=== PATIENT | female | born 1960 | race Two or more races ===

== ENCOUNTER 2017-06-13 18:02 | Emergency (ER) | payer BC ==
[2017-06-13] MEDS ORDERED: Albuterol/Ipratropium 3.0-0.5 MG/3 ML Neb Soln NEB ONE (18:30)
--- NOTE | 2017-06-13 18:37 | EDM.PDOC ---
ED HPI GENERAL MEDICAL PROBLEM - General Chief Complaint: Respiratory Problem Stated Complaint: COUGHING UP BLOOD Time Seen by Provider: 06/13/17 18:35 Source of Information: Reports: Patient History Limitations: Reports: No Limitations - History of Present Illness INITIAL COMMENTS - FREE TEXT/NARRATIVE: HISTORY AND PHYSICAL: []56-year-old female presenting with a cough she states she got it from her History of Present Illness: []She's been sick for 2 weeks was started on amoxicillin last week by [facility]. She has not improved Review of Systems: As per history of present illness and below otherwise all systems reviewed and negative. Past medical history: As per history of present illness and as reviewed below otherwise noncontributory. Surgical history: As per history of present illness and as reviewed below otherwise noncontributory. Social history: No reported history of drug or alcohol abuse. Family history: As per history of present illness and as reviewed below otherwise noncontributory. Physical exam: Pleasant 56-year-old who has quite a hoarse voice, answering questions appropriately has to cough after 4-5 words. Productive cough of green yellow phlegm HEENT: Atraumatic, normocehpalic, pupils reactive, negative for conjunctival pallor or scleral icterus, mucous membranes moist, throat clear, neck supple, nontender, trachea midline. Tonsils 2+ cryptic erythematous anterior cervical adenopathy palpable Lungs: Crackles on auscultation, breath sounds equal bilaterally, chest non tender. Heart: S1S2, regular, negative for clicks, rubs, or JVD. Abdomen: Soft, nondistended, nontender. Negative for masses or hepatossplenmegaly. Negative for costovertebral tenderness. Pelvis: Stable nontender. Genitourinary: Deferred. Rectal: Deferred Extremities: Atraumatic, negative for cords or calf pain. Neurovascular unremarkable. Neuro: Awake, alert, oriented. Cranial nerves II through XII unremarkable. Cerebellum unremarkable. Motor and sensory unremarkable throughout. Exam nonfocal. Have discussed with the patient and her that her mono test is returned negative She does have acute tonsillitis Diagnostics: [Chest x-ray [place] spot] Therapeutics: [] Impression: [Tonsillitis] Plan: [Discharged to home Augmentin suspension Tessalon Frida 4 cough] Definitive disposition and diagnosis as appropriate pending reevaluation and review of above. Onset: Gradual Duration: Week(s): (2) Location: Reports: Neck, Chest Quality: Reports: Same as Previous Episode Severity: Moderate Improves with: Reports: None Worsens with: Reports: None pain when coughing Pain Score (Numeric/FACES): 6 - Related Data Allergies Allergy/AdvReac Type Severity Reaction Status Date / Time chocolate flavor Allergy Rash Verified 06/13/17 18:22 niacin Allergy Cannot Verified 06/13/17 18:22 Remember pioglitazone [From Actos] Allergy Rash Verified 06/13/17 18:22 Home Meds: Home Meds Amoxicillin/Clavulanate K [Augmentin 600-42.9 MG/5 ML Susp] 600 mg PO BID #1 bottle 06/13/17 [Rx] Benzonatate [Tessalon Perle] 100 mg PO QID PRN #28 capsule 06/13/17 [Rx] methylPREDNISolone [Medrol] 4 mg PO ASDIRECTED #1 dosepk 06/13/17 [Rx] Past Medical History 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 ED EXAM, GENERAL - Physical Exam Exam: See Below Course - Vital Signs Last Recorded V/S: Last Vital Signs Temp 35.8 C 06/13/17 18:23 Pulse 99 06/13/17 18:23 Resp 20 06/13/17 18:23 BP 173/87 H 06/13/17 18:23 Pulse Ox 96 06/13/17 18:23 - Orders/Labs/Meds Orders: Active Orders 24 hr Category Date Time Status RT Aerosol Therapy [RC] ASDIRECTED Care 06/13/17 18:31 Active Chest 2V [CR] Stat Exams 06/13/17 18:31 Taken Labs: Laboratory Tests 06/13/17 Range/Units 18:43 Monoscreen NEGATIVE (NEG) Meds: Medications Discontinued Medications Generic Name Dose Route Start Last Admin Trade Name Freq PRN Reason Stop Dose Admin Albuterol/Ipratropium 3 ml 06/13/17 18:30 06/13/17 18:37 Duoneb 3.0-0.5 Mg/3 Ml NEB 06/13/17 18:31 3 ml ONETIME ONE Administration Prednisolone 30 mg 06/13/17 19:12 Orapred 15 Mg/5ml Soln PO 06/13/17 19:13 ONETIME ONE Departure - Departure Time of Disposition: 19:22 Disposition: Home, Self-Care 01 Condition: Good Clinical Impression: Tonsillitis - Discharge Information Prescriptions: Amoxicillin/Clavulanate K [Augmentin 600-42.9 MG/5 ML Susp] 600 mg PO BID #1 bottle Benzonatate [Tessalon Perle] 100 mg PO QID PRN #28 capsule PRN Reason: Cough methylPREDNISolone [Medrol] 4 mg PO ASDIRECTED #1 dosepk Instructions: Upper Respiratory Infection, Adult, [id number], Tonsillitis, [id number] Referrals: PCP,None [Primary Care Provider] - Forms: ED Department Discharge Additional Instructions: The following information is given to patients seen in the emergency department who are being discharged to home. This information is to outline your options for follow-up care. We provide all patients seen in our emergency department with a follow-up referral. The need for follow-up, as well as the timing and circumstances, are variable depending upon the specifics of your emergency department visit. If you don't have a primary care physician on staff, we will provide you with a referral. We always advise you to contact your personal physician following an emergency department visit to inform them of the circumstance of the visit and for follow-up with them and/or the need for any referrals to a consulting specialist. The emergency department will also refer you to a specialist when appropriate. This referral assures that you have the opportunity for followup care with a specialist. All of these measure are taken in an effort to provide you with optimal care, which includes your followup. Under all circumstances we always encourage you to contact your private physician who remains a resource for coordinating your care. When calling for followup care, please make the office aware that this follow-up is from your recent emergency room visit. If for any reason you are refused follow-up, please contact the [facility] emergency department at and asked to speak to the emergency department charge nurse. Prescription since it been sent to [facility] Augmentin suspension 4 year tonsillitis Elieser Gal[place] for a cough Medrol dose pack for your upper airway edema - My Orders Last 24 Hours: My Active Orders 06/13/17 18:31 RT Aerosol Therapy [RC] ASDIRECTED Chest 2V [CR] Stat - Assessment/Plan Last 24 Hours: My Active Orders 06/13/17 18:31 RT Aerosol Therapy [RC] ASDIRECTED Chest 2V [CR] Stat
[2017-06-13] MEDS ORDERED: prednisoLONE Soln 15 MG/5 ML UD Cup PO ONE (19:12)
--- NOTE | 2017-06-15 17:52 | CR ---
EXAM DATE: 06/13/17 PATIENT'S AGE: 56 Patient: CHYNA RAMIREZ Facility: [place], [place] Site . Site : [id number] Study: XRay Chest [id number]/17/2018 7:14:14 PM Ordering Physician: Doctor Soriano Final Report: INDICATION: Pain. Shortness of breath. TECHNIQUE: PA and lateral views of the chest. COMPARISON: None. FINDINGS: Heart size is within normal limits. Normal pulmonary vasculature. There is a nonspecific opacity overlying the right hilum on the frontal view, which appears to be related airspace disease anteriorly in the right middle lobe on the lateral view. Also on the frontal view is a bandlike area opacity radiating from the right hilum, which could be related to subsegmental atelectasis. The left lung is grossly clear. No appreciable pleural fluid or pneumothorax. IMPRESSION: Right middle lobe airspace opacities. Recommend correlation with clinical symptoms (i.e. fever or elevated WBC) to exclude an infectious or inflammatory process. Recommend short-term followup to exclude a postobstructive process. Dictated by Yo Rasheed MD @ 06/13/2017 7:33:11 PM Dictated by: Yo Rasheed MD @ 06/13/2017 19:33:28 (Electronic Signature) Report Signed by Proxy. RILEY
== END 2017-06-13 19:50 | disposition home or self-care (01) ==
LOC: MW.ED 18:02
DX: J03.90 Acute tonsillitis, unspecified (principal); E11.9 Type 2 diabetes mellitus without complications; Z88.8 Allergy status to other drugs, medicaments and biological substances; Z91.018 Allergy to other foods
CPT/HCPCS: 36415; 71046; 86308; 94640; 99284; A9270; 99283

== ENCOUNTER 2017-10-27 07:00 | Emergency (ER) | payer BC ==
--- NOTE | 2017-10-27 07:27 | EDM.PDOC ---
ED HPI GENERAL MEDICAL PROBLEM - General Chief Complaint: Eye Problems Stated Complaint: SWOLLEN RIGHT EYE Time Seen by Provider: 10/27/17 07:19 Source of Information: Reports: Patient - History of Present Illness INITIAL COMMENTS - FREE TEXT/NARRATIVE: HISTORY AND PHYSICAL: History of present illness: [Patient presents with a conjunctivitis on the right, which be again several days ago, no pain with ocular movement, no visual change No fever nausea vomiting chills sweats she does have associated sinus tenderness on the right as well Review of systems: As per history of present illness and below otherwise all systems reviewed and negative. Past medical history: As per history of present illness and as reviewed below otherwise noncontributory. Surgical history: As per history of present illness and as reviewed below otherwise noncontributory. Social history: No reported history of drug or alcohol abuse. Family history: As per history of present illness and as reviewed below otherwise noncontributory. Physical exam: HEENT: Atraumatic, normocephalic, pupils reactive, negative for conjunctival pallor or scleral icterus, mucous membranes moist, throat clear, neck supple, nontender, trachea midline. A conjunctivitis no foreign body appreciated on my exam sinusitis noted right greater than left Lungs: Clear to auscultation, breath sounds equal bilaterally, chest nontender. Heart: S1S2, regular, negative for clicks, rubs, or JVD. Abdomen: Soft, nondistended, nontender. Negative for masses or hepatosplenomegaly. Negative for costovertebral tenderness. Pelvis: Stable nontender. Genitourinary: Deferred. Rectal: Deferred. Extremities: Atraumatic, negative for cords or calf pain. Neurovascular unremarkable. Neuro: Awake, alert, oriented. Cranial nerves II through XII unremarkable. Cerebellum unremarkable. Motor and sensory unremarkable throughout. Exam nonfocal. Diagnostics: [Clinical ] Therapeutics: [Gent ophthalmic Amoxicillin 875 by mouth twice a day #20 no refill ] Impression: [ conjunctivitis Sinusitis ] Definitive disposition and diagnosis as appropriate pending reevaluation and review of above. Right eye Pain Score (Numeric/FACES): 10 - Related Data Allergies Allergy/AdvReac Type Severity Reaction Status Date / Time chocolate flavor Allergy Rash Verified 10/27/17 07:08 niacin Allergy Cannot Verified 10/27/17 07:08 Remember pioglitazone [From Actos] Allergy Rash Verified 10/27/17 07:08 Home Meds: Home Meds . 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 Endocrine/Metabolic History: Reports: Diabetes, Type II - Infectious Disease History Infectious Disease History: Reports: Chicken Pox, Measles, Mumps, Shingles - Past Surgical History Female Surgical History: Reports: Oophorectomy Other Female Surgeries/Procedures: right ovary Social & Family History - Family History Family Medical History: Noncontributory - Tobacco Use Smoking Status *Q: Never Smoker Second Hand Smoke Exposure: No - Caffeine Use Caffeine Use: Reports: Coffee - Recreational Drug Use Recreational Drug Use: No ED ROS GENERAL - Review of Systems Review Of Systems: See Below ED EXAM GENERAL W FULL EYE - Physical Exam Exam: See Below Course - Vital Signs Last Recorded V/S: Last Vital Signs Temp 97.5 F 10/27/17 07:10 Pulse 72 10/27/17 07:10 Resp 16 10/27/17 07:10 BP 142/74 H 10/27/17 07:10 Pulse Ox 94 L 10/27/17 07:10 Departure - Departure Time of Disposition: 07:27 Disposition: Home, Self-Care 01 Condition: Good Clinical Impression: Conjunctivitis, Sinusitis - Discharge Information Referrals: Jeff Garcia MD [Primary Care Provider] - Additional Instructions: The following information is given to patients seen in the emergency department who are being discharged to home. This information is to outline your options for follow-up care. We provide all patients seen in our emergency department with a follow-up referral. The need for follow-up, as well as the timing and circumstances, are variable depending upon the specifics of your emergency department visit. If you don't have a primary care physician on staff, we will provide you with a referral. We always advise you to contact your personal physician following an emergency department visit to inform them of the circumstance of the visit and for follow-up with them and/or the need for any referrals to a consulting specialist. The emergency department will also refer you to a specialist when appropriate. This referral assures that you have the opportunity for follow-up care with a specialist. All of these measure are taken in an effort to provide you with optimal care, which includes your follow-up. Under all circumstances we always encourage you to contact your private physician who remains a resource for coordinating your care. When calling for follow-up care, please make the office aware that this follow-up is from your recent emergency room visit. If for any reason you are refused follow-up, please contact the [facility] emergency department at and asked to speak to the emergency department charge nurse.
== END 2017-10-27 07:50 | disposition home or self-care (01) ==
LOC: MW.ED 07:00
DX: H10.9 Unspecified conjunctivitis (principal); J32.9 Chronic sinusitis, unspecified; E11.9 Type 2 diabetes mellitus without complications; Z88.8 Allergy status to other drugs, medicaments and biological substances; Z91.018 Allergy to other foods
CPT/HCPCS: 99283